=== PATIENT | female | born 1980 | race African-American/Black ===

== ENCOUNTER 2019-05-09 08:57 | Emergency (ER) | payer SELFPAY ==
[~2019-05-09] VITALS: Ht 185.4 cm; Wt 70.3 kg
[2019-05-09 09:20] VITALS: BP 123/76
--- NOTE | 2019-05-09 09:32 | PHYS DOC ---
Adult General Chief Complaint Chief Complaint: ANKLE PROBLEM HPI HPI Patient is a 38 year old female who presents with a throbbing intermittent 12/10 right ankle pain that begun this morning when she fell down 2 steps. Denies any LOC. States the pain is worse on the lateral and anterior aspects of the ankle especially on weight bearing. She states immobilization relieves some of the pain. Review of Systems Review of Systems Constitutional: Denies fever or chills [] Musculoskeletal: Reports right ankle pain Integument: Denies rash or skin lesions [] Neurologic: Denies headache, focal weakness or sensory changes [] All other systems were reviewed and found to be within normal limits, except as documented in this note. Physical Exam Physical Exam Constitutional: Well developed, well nourished, no acute distress, non-toxic appearance. [] Skin: Warm, dry, no erythema, no rash. [] Back: No tenderness, no CVA tenderness. [] Extremities: Right ankle with no obvious deformity. No erythema, mild soft tissue swelling noted on the lateral aspect of the ankle. Full range of motion to the right ankle and toes. +2 right radial pulse. Cap refill less than 2 seconds the right toes. Sensation intact to the right lower extremity. Neurologic: Alert and oriented X 3, normal motor function, normal sensory function, no focal deficits noted. [] Psychologic: Affect normal, judgement normal, mood normal. [] EKG EKG [] Radiology/Procedures Radiology/Procedures []PROCEDURE: ANKLE RIGHT 3V EXAM: AP, mortise, lateral views right ankle DATE: 05/09/2019 9:21 AM INDICATION: Fall, ankle pain COMPARISON: No Prior FINDINGS/ IMPRESSION: 1. No evidence of acute fracture or dislocation. Joint spaces are preserved without significant degenerative/proliferative change. 2. Talar dome is intact. Ankle mortise is congruent. 3. Mild soft tissue swelling overlying the lateral malleolus. Electronically signed by: Julio Cesar Downey MD (05/09/2019 9:39 AM) [id number] DICTATED and SIGNED BY: JULIO CESAR DOWNEY MD DATE: 05/09/19 0939 Course & Med Decision Making Course & Med Decision Making Pertinent Labs and Imaging studies reviewed. (See chart for details) This is a 38-year-old female patient presenting to the ED today with right ankle pain that began after she fell down 2 steps. No loss of consciousness. Right ankle x-rays interpreted by radiologist are negative for any acute findings. Air cast to the right ankle applied by boiler testing technician. neurovascular exam is intact. Ice elevation encouraged. OTC pain relievers. Dragon Disclaimer Dragon Disclaimer This electronic medical record was generated, in whole or in part, using a voice recognition dictation system. Departure Departure Impression: Primary Impression: Right ankle sprain Additional Impression: Fall Disposition: HOME, SELF-CARE Condition: STABLE Referrals: RASHEL BARDALES MD follow up in 1 week Patient Instructions: Ankle Sprain Additional Instructions: You have right ankle sprain. Please ice and elevate the extremity. Wear the air cast provided as needed. Please take OTC pain relievers especially anti-inflamma tories as needed for pain. 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
--- NOTE | 2019-05-09 09:42 | RAD ---
EXAM: AP, mortise, lateral views right ankle DATE: 05/09/2019 9:21 AM INDICATION: Fall, ankle pain COMPARISON: No Prior FINDINGS/ IMPRESSION: 1. No evidence of acute fracture or dislocation. Joint spaces are preserved without significant degenerative/proliferative change. 2. Talar dome is intact. Ankle mortise is congruent. 3. Mild soft tissue swelling overlying the lateral malleolus. Electronically signed by: Julio Cesar Downey MD (05/09/2019 9:39 AM) [id number]
[2019-05-09] MEDS ORDERED: NAPROXEN 500 MG TABLET PO STA (10:07)
[2019-05-09] MEDS ORDERED: HYDROcodone/APAP 5/325MG 1 TAB TABLET PO ONE (10:15)
== END 2019-05-09 10:23 | disposition home or self-care (01) ==
LOC: ER 08:57
DX: S93.401A Sprain of unspecified ligament of right ankle, initial encounter (principal); W10.8XXA Fall (on) (from) other stairs and steps, initial encounter; Y93.89 Activity, other specified; Y92.89 Other specified places as the place of occurrence of the external cause; Y99.8 Other external cause status
CPT/HCPCS: 73610; 99284; L4350